=== PATIENT | male | born 1985 | race African-American/Black ===

== ENCOUNTER 2018-12-24 00:59 | Inpatient (IN) ==
[2018-12-24] MEDS ORDERED: Fentanyl 100 MCG/2 ML VIAL ONE ×3 (01:02→05:10)
[2018-12-24] MEDS ORDERED: Ondansetron PF 4 MG/2 ML Vial ONE ×2 (01:04→16:47)
[2018-12-24] MEDS ORDERED: Adacel (T-DAP) 0.5 ML SYRINGE ONE (01:11)
[2018-12-24 01:12] LABS: #Basophils 0.1 thou/uL (0.0-0.2); #Eosinphils 0.2 thou/uL (0.0-0.7); #Neutrophils 3.9 thou/uL (1.40-6.50); %Basophils 1.3 % (0.0-1.0); %Eosinophils 2.2 % (0.0-10.0); %Lymphocytes 43.5 % (21.0-51.0); %Monocytes 10.3 % (0.0-10.0); %Neutrophils 42.7 % (42.0-75.0); Hemoglobin 13.8 g/dL (14.0-18.0); Mean Corpuscular HGB CONC 32.9 g/dL (32.0-36.0); Mean Corpuscular Hemoglobin 31.3 pg (27.0-31.0); Mean Corpuscular Volume 95.3 fL (78.0-98.0); Mean Platelet Volume 6.9 fL (7.4-10.4); Platelet Count 401 thou/uL (130-400); RBC Distribution Width 11.2 % (11.5-14.5); Red Blood Cell (RBC) Count 4.41 mill/uL (4.70-6.10); White Blood Cell (WBC) Count 9.2 thou/uL (4.8-10.8)
[2018-12-24] MEDS ORDERED: metroNIDAZOLE 500 MG/100 ML BAG ONE (01:15)
[2018-12-24 01:20] LABS: INR-International Normal Ratio 1.2; PTT 24.2 SEC (22.9-36.1); Prothrombin Time 14.9 SEC (12.0-14.7)
[2018-12-24 01:30] LABS: ALT (SGPT) 10 U/L (8-55); AST (SGOT) 18 U/L (5-34); Albumin 4.2 g/dL (3.5-5.0); Alkaline Phosphatase 63 U/L (40-150); Anion Gap 20 mmol/L (10-20); BUN (Urea Nitrogen) 22 mg/dL (8.9-20.6); Bilirubin, Total 0.4 mg/dL (0.2-1.2); Calc. Creatinine Clearance 0 mL/min (70-130); Calcium 9.2 mg/dL (7.8-10.44); Carbon Dioxide 13 mmol/L (22-29); Chloride 105 mmol/L (98-107); Estimated GFR-MDRD 49; Globulin 3.6 g/dL (2.4-3.5); Glucose 149 mg/dL (70-105); Protein, Total 7.8 g/dL (6.0-8.3); Sodium 135 mmol/L (136-145)
[2018-12-24] MEDS ORDERED: Heparin 10,000 UNITS/1 ML VIAL ONE ×2 (01:50→01:58)
[2018-12-24] MEDS ORDERED: HYDROmorphone 2 MG/ML VIAL ONE (02:39)
[2018-12-24] MEDS ORDERED: Phenylephrine HCL 10 MG/ML VIAL ONE (03:48)
[2018-12-24] MEDS ORDERED: Propofol 1,000 MG/100 ML VIAL IV ONE ×2 (03:48→10:55)
[2018-12-24] MEDS ORDERED: Ondansetron PF 4 MG/2 ML Vial IVP PRN ×2 (05:02→09:58)
[2018-12-24] MEDS ORDERED: Ventilator Sedation Protocol 1 EACH FS SCH (05:02)
[2018-12-24] MEDS ORDERED: Promethazine HCl 25 MG/ML VIAL IM PRN ×2 (05:02)
[2018-12-24] MEDS ORDERED: Ondansetron ODT 4 MG TAB PO PRN (05:02)
[2018-12-24] MEDS ORDERED: hydrALAZINE 20 MG/ML VIAL SLOW IVP PRN (05:02)
[2018-12-24] MEDS ORDERED: Dextrose 5% in Water 1,000 ML IV PRN (05:02)
[2018-12-24] MEDS ORDERED: Dextrose 50% Abboject 50 ML SYRINGE SLOW IVP PRN (05:02)
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
[2018-12-24] MEDS ORDERED: Propofol BOLUS 1,000 MG/100 ML VIAL IV PRN (05:10)
[2018-12-24] MEDS ORDERED: Lorazepam 2 MG/ML VIAL SLOW IVP PRN (05:10)
[2018-12-24] MEDS ORDERED: Fentanyl BOLUS 250 ML IVPB PRN (05:10)
[2018-12-24] MEDS ORDERED: fentaNYL Citrate/PF 2,000 MCG in Sodium Chloride 0.9% 60 ML IV SCH (05:10)
[2018-12-24] MEDS ORDERED: DISCONTINUE PREVIOUS NARCOTIC PAIN MEDICATIONS AND BENZODIAZEPINES FS SCH (05:10)
[2018-12-24] MEDS ORDERED: Morphine 2 MG/ML SYRINGE SLOW IVP PRN (05:10)
[2018-12-24] MEDS: Propofol 1,000 MG/100 ML VIAL IV PRN ×2 (05:26→08:16)
[2018-12-24] MEDS ORDERED: Sodium Bicarbonate 150 MEQ in Dextrose 5% in Water 1,000 ML IV SCH ×2 (05:30→06:12)
[2018-12-24] MEDS ORDERED: Piperacillin/Tazobactam 3.375 GM in Sodium Chloride 0.9% 100 ML IVPB SCH ×2 (06:00→12:00)
[2018-12-24] MEDS ORDERED: Potassium Chloride 40 MEQ in Premix Bag 1 BAG IVPB SCH (06:30)
[2018-12-24] MEDS: Potassium Chloride 20 MEQ in Premix Bag 1 BAG IVPB SCH ×2 (06:34→07:27)
[2018-12-24 06:55] LABS: Actual Bicarbonate (HCO3a) 19.6 mEq/L (22-28); Base Excess (BEa) -5.3 mEq/L (-2.0 to +3.0); CO2 Tension 36.3 mmHg (35.0-45.0); Calcium, Ionized 1.08 mmol/L (1.12-1.30); Carboxyhemoglobin (COHb) 0.9 gm% (0.0-3.0); Hemoglobin (Hb) 12.8 g/dL (14.0-18.0); O2 Tension (PaO2) 320.3 mmHg (80.0-100.0); Potassium - ABG Lab 4.06 mmol/L (3.70-5.30); pH, Arterial 7.35 (7.35-7.45)
[2018-12-24 06:57] LABS: ALV-art Gradient 347.325 (0-20); Puncture Site ALINE
[2018-12-24 07:34] VITALS: BMI 35.2
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
[2018-12-24] MEDS: Lactated Ringer's 1,000 ML IV SCH ×3 (08:23→18:10)
[2018-12-24] MEDS ORDERED: Fluconazole In NaCl,Iso-Osm 400 MG in Premix Bag 1 BAG IVPB SCH (09:00)
[2018-12-24 09:58] LABS: #Lymphocytes 1.2 thou/uL (1.20-3.40); #Neutrophils 14.4 thou/uL (1.40-6.50); %Basophils 0.1 % (0.0-1.0); %Eosinophils 0.2 % (0.0-10.0); %Lymphocytes 6.9 % (21.0-51.0); %Monocytes 6.1 % (0.0-10.0); %Neutrophils 86.7 % (42.0-75.0); Hemoglobin 12.4 g/dL (14.0-18.0); Mean Corpuscular HGB CONC 32.9 g/dL (32.0-36.0); Mean Corpuscular Hemoglobin 30.9 pg (27.0-31.0); Mean Corpuscular Volume 93.8 fL (78.0-98.0); Mean Platelet Volume 6.9 fL (7.4-10.4); Platelet Count 322 thou/uL (130-400); RBC Distribution Width 11.2 % (11.5-14.5); Red Blood Cell (RBC) Count 4.01 mill/uL (4.70-6.10); White Blood Cell (WBC) Count 16.7 thou/uL (4.8-10.8)
[2018-12-24] MEDS ORDERED: HYDROmorphone 10 mg/100 ml CADD IVPB PRN (09:58)
[2018-12-24] MEDS ORDERED: Naloxone HCl 0.4 mg/ml Vial IV PRN (09:58)
[2018-12-24] MEDS ORDERED: diphenhydrAMINE 25 MG CAP PO PRN (09:58)
[2018-12-24] MEDS ORDERED: diphenhydrAMINE 50 MG/ML VIAL IM PRN (09:58)
[2018-12-24] MEDS ORDERED: diphenhydrAMINE 50 MG/ML VIAL IVP PRN (09:58)
[2018-12-24] MEDS ORDERED: Communication Order-Pharmacy FS SCH (10:00)
[2018-12-24 10:20] LABS: Anion Gap 10 mmol/L (10-20); BUN (Urea Nitrogen) 15 mg/dL (8.9-20.6); Calc. Creatinine Clearance 142 mL/min (70-130); Calcium 8.2 mg/dL (7.8-10.44); Carbon Dioxide 22 mmol/L (22-29); Chloride 106 mmol/L (98-107); Estimated GFR-MDRD 80; Glucose 145 mg/dL (70-105); Lipase 39 U/L (8-78); Phosphorus 3.2 mg/dL (2.3-4.7); Potassium 4.2 mmol/L (3.5-5.1); Sodium 134 mmol/L (136-145)
[2018-12-24] MEDS: Fluconazole In NaCl,Iso-Osm 200 MG in Premix Bag 1 BAG IVPB SCH (10:25)
[2018-12-24 13:01] LABS: Medtox Reader # READER 1; Methamphetamine Detected (NotDetected); Opiate Screen Detected (NotDetected)
[2018-12-24 13:02] LABS: Amphetamine Not Detected (NotDetected); Barbiturates Screen Not Detected (NotDetected); Benzodiazepine Screen Not Detected (NotDetected); Cocaine Metabolite Screen Not Detected (NotDetected); Medtox Control Line Valid? VALID (VALID); Methadone Not Detected (NotDetected); Oxycodone Screen Not Detected (NotDetected); Phencyclidine (PCP) Not Detected (NotDetected); THC/Cannabinoid Screen Not Detected (NotDetected); Tricyclic Screen Not Detected (NotDetected)
[2018-12-24] MEDS: Meropenem 2 GM, Admixture Fee 1 EACH in Sodium Chloride 0.9% 100 ML IVPB SCH ×2 (13:35→22:34)
[2018-12-24] MEDS ORDERED: Meropenem 2 GM in Admixture Fee 1 EACH IVPB SCH (14:00)
[2018-12-24] MEDS ORDERED: Iopamidol 370 76% 100 ML VIAL ONE (16:19)
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
[2018-12-24] MEDS ORDERED: Rocuronium Bromide 10 MG/ML (10ML VIAL) ONE (16:47)
[2018-12-24] MEDS ORDERED: PHENYLEPHRINE-NS 100 MCG/ML 10 ML SYRINGE ONE (16:47)
[2018-12-24] MEDS ORDERED: ePHEDrine 50 MG/ML VIAL ONE (16:47)
[2018-12-24] MEDS ORDERED: Lidocaine 1% PF 5 ML VIAL ONE (16:47)
[2018-12-24] MEDS ORDERED: Succinylcholine Chloride 20 MG/ML 10 ml SYRINGE FS ONE (16:47)
[2018-12-24] MEDS ORDERED: PROPOFOL 200 MG/20 ML VIAL ONE (16:47)
[2018-12-24] MEDS ORDERED: Dexamethasone 20 MG/5 ML VIAL ONE (16:47)
[2018-12-24] MEDS ORDERED: Vecuronium 10 MG VIAL ONE (16:47)
[2018-12-24] MEDS: Ketorolac Tromethamine 30 MG/ML VIAL IVP SCH (22:15)
[2018-12-24] MEDS ORDERED: Acetaminophen 1,000 MG in Premix Bag 1 BAG IVPB SCH (22:15)
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
[2018-12-25] MEDS: Lactated Ringer's 1,000 ML IV SCH ×4 (02:12→21:58)
[2018-12-25] MEDS: Meropenem 2 GM, Admixture Fee 1 EACH in Sodium Chloride 0.9% 100 ML IVPB SCH ×3 (06:00→22:47)
[2018-12-25] MEDS: Ketorolac Tromethamine 30 MG/ML VIAL IVP SCH ×3 (06:00→22:47)
[2018-12-25 06:02] LABS: Band 16 % (5-11); Hemoglobin 12.6 g/dL (14.0-18.0); Lymphocytes 15 % (21-51); MDiff Complete? YES; Mean Corpuscular HGB CONC 33.1 g/dL (32.0-36.0); Mean Corpuscular Hemoglobin 31.8 pg (27.0-31.0); Mean Corpuscular Volume 96.1 fL (78.0-98.0); Mean Platelet Volume 7.9 fL (7.4-10.4); Monocytes 5 % (0-10); Neutrophil 64 % (42-75); Platelet Count 189 thou/uL (130-400); Platelet Morphology Comment Appears Adequate; RBC Distribution Width 11.3 % (11.5-14.5); Red Blood Cell (RBC) Count 3.98 mill/uL (4.70-6.10); White Blood Cell (WBC) Count 18.2 thou/uL (4.8-10.8)
[2018-12-25 06:17] LABS: Anion Gap 14 mmol/L (10-20); BUN (Urea Nitrogen) 14 mg/dL (8.9-20.6); Calc. Creatinine Clearance 140 mL/min (70-130); Calcium 8.1 mg/dL (7.8-10.44); Carbon Dioxide 21 mmol/L (22-29); Chloride 106 mmol/L (98-107); Estimated GFR-MDRD 79; Glucose 93 mg/dL (70-105); Magnesium 1.8 mg/dL (1.6-2.6); Phosphorus 3.4 mg/dL (2.3-4.7); Sodium 136 mmol/L (136-145)
[2018-12-25] MEDS ORDERED: Magnesium Sulfate 3 GM in Sodium Chloride 0.9% 250 ML 250 ML IVPB SCH (06:30)
[2018-12-25 07:42] LABS: Anion Gap 11 mmol/L (10-20); BUN (Urea Nitrogen) 13 mg/dL (8.9-20.6); Calc. Creatinine Clearance 143 mL/min (70-130); Carbon Dioxide 23 mmol/L (22-29); Chloride 104 mmol/L (98-107); Estimated GFR-MDRD 81; Glucose 94 mg/dL (70-105); Sodium 134 mmol/L (136-145)
[2018-12-25] MEDS ORDERED: Sodium Chloride 0.9% (PF) 10 ML VIAL FS PRN (08:07)
[2018-12-25] MEDS: Pantoprazole 40 MG VIAL IVP SCH (09:18)
[2018-12-25] MEDS: Fluconazole In NaCl,Iso-Osm 200 MG in Premix Bag 1 BAG IVPB SCH (11:20)
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
[2018-12-26 05:19] LABS: #Eosinphils 0.1 thou/uL (0.0-0.7); #Lymphocytes 1.7 thou/uL (1.20-3.40); #Neutrophils 9.9 thou/uL (1.40-6.50); %Basophils 0.1 % (0.0-1.0); %Eosinophils 1.1 % (0.0-10.0); %Lymphocytes 13.4 % (21.0-51.0); %Monocytes 7.8 % (0.0-10.0); %Neutrophils 77.8 % (42.0-75.0); Hemoglobin 10.1 g/dL (14.0-18.0); Mean Corpuscular HGB CONC 33.6 g/dL (32.0-36.0); Mean Corpuscular Hemoglobin 32.6 pg (27.0-31.0); Mean Corpuscular Volume 97.1 fL (78.0-98.0); Platelet Count 255 thou/uL (130-400); RBC Distribution Width 10.9 % (11.5-14.5); Red Blood Cell (RBC) Count 3.08 mill/uL (4.70-6.10); White Blood Cell (WBC) Count 12.7 thou/uL (4.8-10.8)
[2018-12-26 05:40] LABS: INR-International Normal Ratio 1.3; PTT 36.1 SEC (22.9-36.1)
[2018-12-26 05:43] LABS: Anion Gap 11 mmol/L (10-20); BUN (Urea Nitrogen) 12 mg/dL (8.9-20.6); Calc. Creatinine Clearance 151 mL/min (70-130); Calcium 8.3 mg/dL (7.8-10.44); Carbon Dioxide 24 mmol/L (22-29); Chloride 104 mmol/L (98-107); Estimated GFR-MDRD 86; Glucose 93 mg/dL (70-105); Magnesium 2.1 mg/dL (1.6-2.6); Potassium 3.8 mmol/L (3.5-5.1); Sodium 135 mmol/L (136-145)
[2018-12-26] MEDS: Acetaminophen 1,000 MG in Premix Bag 1 BAG IVPB PRN ×3 (05:44→18:12)
[2018-12-26] MEDS: Lactated Ringer's 1,000 ML IV SCH ×3 (05:44→18:14)
[2018-12-26 05:57] LABS: Phosphorus 1.7 mg/dL (2.3-4.7)
[2018-12-26] MEDS ORDERED: Potassium Phosphate 30 MMOL in Sodium Chloride 0.9% 250 ML 250 ML IVPB SCH (06:15)
[2018-12-26] MEDS: Meropenem 2 GM, Admixture Fee 1 EACH in Sodium Chloride 0.9% 100 ML IVPB SCH ×3 (06:35→22:03)
[2018-12-26] MEDS: Ketorolac Tromethamine 30 MG/ML VIAL IVP SCH (06:36)
[2018-12-26] MEDS ORDERED: Midazolam HCl 2 mg/2 ml Vial ONE (07:16)
[2018-12-26] MEDS ORDERED: Fentanyl 250 MCG/5 ML VIAL ONE (07:16)
[2018-12-26] MEDS ORDERED: Succinylcholine Chloride 20 MG/ML 10 ml SYRINGE FS ONE (08:00)
[2018-12-26] MEDS ORDERED: PROPOFOL 200 MG/20 ML VIAL ONE (08:00)
[2018-12-26] MEDS ORDERED: Rocuronium Bromide 10 MG/ML (10ML VIAL) ONE (08:00)
[2018-12-26] MEDS ORDERED: Lidocaine 1% PF 5 ML VIAL ONE (08:00)
[2018-12-26] MEDS ORDERED: Ondansetron PF 4 MG/2 ML Vial ONE (08:00)
[2018-12-26] MEDS ORDERED: Ondansetron HCl/PF 4 MG/2 ML Vial IVP PRN (10:20)
[2018-12-26] MEDS ORDERED: Promethazine HCl 25 MG/ML VIAL IM PRN (10:20)
[2018-12-26] MEDS ORDERED: Promethazine HCl 25 MG/ML VIAL SLOW IVP PRN (10:20)
[2018-12-26] MEDS ORDERED: Fentanyl 100 MCG/2 ML VIAL ONE (10:22)
[2018-12-26] MEDS ORDERED: Sodium Chloride 0.9% 20 ML ONE (10:33)
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
[2018-12-26] MEDS ORDERED: HYDROmorphone 2 MG/ML VIAL ONE (10:44)
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
[2018-12-26] MEDS: Fluconazole In NaCl,Iso-Osm 200 MG in Premix Bag 1 BAG IVPB SCH (12:50)
[2018-12-26] MEDS: Pantoprazole 40 MG VIAL IVP SCH ×2 (12:50→20:12)
[2018-12-26] MEDS: HYDROmorphone 10 mg/100 ml CADD IVPB PRN (15:09)
[2018-12-26] MEDS ORDERED: Sodium Chloride 0.9% (PF) 10 ML VIAL FS PRN (16:24)
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
[2018-12-27] MEDS: Lactated Ringer's 1,000 ML IV SCH ×4 (06:13→20:32)
[2018-12-27 06:19] LABS: Band 11 % (5-11); Hemoglobin 9.5 g/dL (14.0-18.0); Lymphocytes 9 % (21-51); MDiff Complete? YES; Mean Corpuscular HGB CONC 31.4 g/dL (32.0-36.0); Mean Corpuscular Hemoglobin 30.5 pg (27.0-31.0); Mean Corpuscular Volume 97.2 fL (78.0-98.0); Mean Platelet Volume 7.6 fL (7.4-10.4); Monocytes 4 % (0-10); Neutrophil 76 % (42-75); Platelet Count 290 thou/uL (130-400); Platelet Morphology Comment Appears Adequate; RBC Distribution Width 11.1 % (11.5-14.5); Red Blood Cell (RBC) Count 3.12 mill/uL (4.70-6.10)
[2018-12-27 06:32] LABS: Anion Gap 8 mmol/L (10-20); BUN (Urea Nitrogen) 9 mg/dL (8.9-20.6); Calc. Creatinine Clearance 158 mL/min (70-130); Calcium 8.5 mg/dL (7.8-10.44); Carbon Dioxide 27 mmol/L (22-29); Chloride 105 mmol/L (98-107); Estimated GFR-MDRD 90; Glucose 113 mg/dL (70-105); Phosphorus 1.3 mg/dL (2.3-4.7); Potassium 4.1 mmol/L (3.5-5.1); Sodium 136 mmol/L (136-145)
[2018-12-27] MEDS: Meropenem 2 GM, Admixture Fee 1 EACH in Sodium Chloride 0.9% 100 ML IVPB SCH ×2 (06:40→15:16)
[2018-12-27] MEDS ORDERED: Sodium Phosphate 30 MMOL in Sodium Chloride 0.9% 250 ML 250 ML IVPB SCH (08:15)
[2018-12-27] MEDS: Pantoprazole 40 MG VIAL IVP SCH ×2 (08:54→20:32)
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
[2018-12-27] MEDS: Fluconazole In NaCl,Iso-Osm 200 MG in Premix Bag 1 BAG IVPB SCH (12:30)
[2018-12-27] MEDS: Enoxaparin Sodium 30 MG/0.3 ML SYRINGE SC SCH (20:31)
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
[2018-12-28] MEDS: Meropenem 2 GM, Admixture Fee 1 EACH in Sodium Chloride 0.9% 100 ML IVPB SCH ×4 (00:08→18:47)
[2018-12-28] MEDS: Lactated Ringer's 1,000 ML IV SCH ×4 (03:49→17:29)
[2018-12-28 04:16] LABS: #Basophils 0.1 thou/uL (0.0-0.2); #Eosinphils 0.4 thou/uL (0.0-0.7); #Lymphocytes 2.4 thou/uL (1.20-3.40); #Monocytes 1.6 thou/uL (0.11-0.59); #Neutrophils 10.3 thou/uL (1.40-6.50); %Basophils 0.5 % (0.0-1.0); %Eosinophils 2.9 % (0.0-10.0); %Lymphocytes 16.2 % (21.0-51.0); %Monocytes 10.5 % (0.0-10.0); %Neutrophils 69.9 % (42.0-75.0); Mean Corpuscular HGB CONC 33.4 g/dL (32.0-36.0); Mean Corpuscular Hemoglobin 32.1 pg (27.0-31.0); Mean Platelet Volume 6.9 fL (7.4-10.4); Platelet Count 326 thou/uL (130-400); RBC Distribution Width 11.1 % (11.5-14.5); White Blood Cell (WBC) Count 14.7 thou/uL (4.8-10.8)
[2018-12-28 04:37] LABS: Anion Gap 13 mmol/L (10-20); BUN (Urea Nitrogen) 9 mg/dL (8.9-20.6); Calc. Creatinine Clearance 194 mL/min (70-130); Calcium 8.8 mg/dL (7.8-10.44); Carbon Dioxide 24 mmol/L (22-29); Chloride 104 mmol/L (98-107); Estimated GFR-MDRD Greater than 90; Glucose 100 mg/dL (70-105); Magnesium 1.9 mg/dL (1.6-2.6); Potassium 3.9 mmol/L (3.5-5.1); Sodium 137 mmol/L (136-145)
[2018-12-28 05:01] LABS: Phosphorus 1.5 mg/dL (2.3-4.7)
[2018-12-28] MEDS: HYDROmorphone 10 mg/100 ml CADD IVPB PRN (05:10)
[2018-12-28] MEDS ORDERED: Magnesium 2 GM/50 ML 2 GM in Premix Bag 1 BAG IVPB SCH (05:15)
[2018-12-28] MEDS: Enoxaparin Sodium 30 MG/0.3 ML SYRINGE SC SCH (08:38)
[2018-12-28] MEDS: Pantoprazole 40 MG VIAL IVP SCH ×2 (08:38→20:35)
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
[2018-12-28] MEDS: Fluconazole In NaCl,Iso-Osm 200 MG in Premix Bag 1 BAG IVPB SCH (11:30)
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
[2018-12-29] MEDS: Meropenem 2 GM, Admixture Fee 1 EACH in Sodium Chloride 0.9% 100 ML IVPB SCH ×2 (02:47→13:02)
[2018-12-29] MEDS: Lactated Ringer's 1,000 ML IV SCH (02:48)
[2018-12-29 05:48] LABS: #Eosinphils 0.7 thou/uL (0.0-0.7); #Lymphocytes 2.3 thou/uL (1.20-3.40); #Monocytes 1.2 thou/uL (0.11-0.59); #Neutrophils 6.9 thou/uL (1.40-6.50); %Basophils 0.1 % (0.0-1.0); %Eosinophils 6.7 % (0.0-10.0); %Lymphocytes 20.6 % (21.0-51.0); %Monocytes 10.7 % (0.0-10.0); %Neutrophils 61.9 % (42.0-75.0); Hemoglobin 9.4 g/dL (14.0-18.0); Mean Corpuscular HGB CONC 33.8 g/dL (32.0-36.0); Mean Corpuscular Hemoglobin 32.1 pg (27.0-31.0); Mean Corpuscular Volume 95.1 fL (78.0-98.0); Platelet Count 383 thou/uL (130-400); RBC Distribution Width 11.3 % (11.5-14.5); Red Blood Cell (RBC) Count 2.91 mill/uL (4.70-6.10); White Blood Cell (WBC) Count 11.2 thou/uL (4.8-10.8)
[2018-12-29] MEDS ORDERED: Acetaminophen 1,000 MG in Premix Bag 1 BAG IVPB SCH (06:30)
[2018-12-29 06:45] LABS: Anion Gap 11 mmol/L (10-20); BUN (Urea Nitrogen) 9 mg/dL (8.9-20.6); Calc. Creatinine Clearance 196 mL/min (70-130); Calcium 8.5 mg/dL (7.8-10.44); Carbon Dioxide 26 mmol/L (22-29); Chloride 102 mmol/L (98-107); Estimated GFR-MDRD Greater than 90; Glucose 90 mg/dL (70-105); Magnesium 1.9 mg/dL (1.6-2.6); Phosphorus 2.1 mg/dL (2.3-4.7); Potassium 3.8 mmol/L (3.5-5.1); Sodium 135 mmol/L (136-145)
[2018-12-29] MEDS: Pantoprazole 40 MG VIAL IVP SCH ×2 (08:35→21:42)
[2018-12-29] MEDS ORDERED: Potassium Phosphate 30 MMOL in Sodium Chloride 0.9% 250 ML 250 ML IVPB SCH (09:15)
[2018-12-29] MEDS: Fluconazole In NaCl,Iso-Osm 200 MG in Premix Bag 1 BAG IVPB SCH (09:43)
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
[2018-12-29] MEDS ORDERED: traMADol HCl 50 MG TAB PO PRN (11:23)
[2018-12-29] MEDS: traMADol HCl 50 MG TAB PO SCH ×3 (12:59→23:29)
--- NOTE | 2018-12-29 14:04 | ULT ---
BILATERAL LOWER EXTREMITY VENOUS DUPLEX EXAM: 12/29/18 HISTORY: Bilateral leg pain and swelling. Real time color Doppler evaluation of the right and left lower extremities were performed from groin to calf. This includes evaluation of the common femoral, superficial and profunda femoral, saphenous , popliteal, and posterior tibial veins. This shows patent deep venous systems bilaterally. There is normal compressibility and augmentation. There is no evidence of DVT. IMPRESSION: No evidence of DVT of either lower extremity. POS: OFF
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
[2018-12-29] MEDS: Acetaminophen 500 MG TAB PO SCH ×2 (18:12→23:30)
[2018-12-29] MEDS: Enoxaparin Sodium 40 MG/0.4 ML SYRINGE SC SCH (21:42)
[2018-12-30 04:42] LABS: Anion Gap 12 mmol/L (10-20); BUN (Urea Nitrogen) 10 mg/dL (8.9-20.6); Calc. Creatinine Clearance 198 mL/min (70-130); Calcium 8.5 mg/dL (7.8-10.44); Carbon Dioxide 25 mmol/L (22-29); Chloride 102 mmol/L (98-107); Estimated GFR-MDRD Greater than 90; Glucose 93 mg/dL (70-105); Magnesium 2.1 mg/dL (1.6-2.6); Potassium 3.8 mmol/L (3.5-5.1); Sodium 135 mmol/L (136-145)
[2018-12-30 05:45] LABS: Band 3 % (5-11); Eosinophils 7 % (0-10); Hemoglobin 9.6 g/dL (14.0-18.0); Lymphocytes 23 % (21-51); MDiff Complete? YES; Mean Corpuscular HGB CONC 33.3 g/dL (32.0-36.0); Mean Corpuscular Hemoglobin 31.4 pg (27.0-31.0); Mean Corpuscular Volume 94.2 fL (78.0-98.0); Mean Platelet Volume 6.9 fL (7.4-10.4); Monocytes 11 % (0-10); Neutrophil 56 % (42-75); Nucleated RBC 1 % (0); Platelet Count 454 thou/uL (130-400); Platelet Morphology Comment Appears Increased; Polychromasia SLIGHT = 2-3 cells (100X) (0-2/hpf); RBC Distribution Width 11.4 % (11.5-14.5); Red Blood Cell (RBC) Count 3.05 mill/uL (4.70-6.10); White Blood Cell (WBC) Count 12.5 thou/uL (4.8-10.8)
[2018-12-30] MEDS: Acetaminophen 500 MG TAB PO SCH ×4 (06:01→23:24)
[2018-12-30] MEDS: traMADol HCl 50 MG TAB PO SCH ×4 (06:01→23:23)
[2018-12-30] MEDS: Pantoprazole 40 MG VIAL IVP SCH ×2 (09:20→20:45)
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
[2018-12-30] MEDS: Enoxaparin Sodium 40 MG/0.4 ML SYRINGE SC SCH (20:45)
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
[2018-12-31] MEDS: traMADol HCl 50 MG TAB PO SCH ×4 (05:22→23:28)
[2018-12-31] MEDS: Acetaminophen 500 MG TAB PO SCH ×4 (05:22→23:29)
[2018-12-31 05:24] LABS: Band 1 % (5-11); Eosinophils 7 % (0-10); Hemoglobin 9.7 g/dL (14.0-18.0); Lymphocytes 18 % (21-51); MDiff Complete? YES; Mean Corpuscular Hemoglobin 31.2 pg (27.0-31.0); Mean Corpuscular Volume 94.4 fL (78.0-98.0); Mean Platelet Volume 6.6 fL (7.4-10.4); Monocytes 9 % (0-10); Neutrophil 65 % (42-75); Platelet Count 605 thou/uL (130-400); Platelet Morphology Comment Appears Increased; Polychromasia SLIGHT = 2-3 cells (100X) (0-2/hpf); RBC Distribution Width 11.6 % (11.5-14.5); White Blood Cell (WBC) Count 11.3 thou/uL (4.8-10.8)
[2018-12-31] MEDS: Pantoprazole 40 MG VIAL IVP SCH ×2 (08:26→19:43)
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
[2018-12-31] MEDS: Enoxaparin Sodium 40 MG/0.4 ML SYRINGE SC SCH (19:43)
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
[2019-01-01] MEDS: traMADol HCl 50 MG TAB PO SCH ×2 (06:00→12:19)
[2019-01-01] MEDS: Acetaminophen 500 MG TAB PO SCH ×2 (06:01→12:20)
[2019-01-01] MEDS: Pantoprazole 40 MG VIAL IVP SCH (09:31)
[2019-01-01] MEDS ORDERED: Lidocaine 1% (PF) 30 ML VIAL ONE (11:53)
[2019-01-01 12:24] VITALS: BP 106/70; TEMP 98.6
[2019-01-01] MEDS ORDERED: Lidocaine 1% w/Epinephrine 1:200K 30 ML VIAL FS SCH (13:00)
[2019-01-01] MEDS ORDERED: Lidocaine 1% w/Epinephrine 1:100K 30 ML VIAL FS SCH (13:00)
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
[2019-01-03 09:32] LABS: Actual Bicarbonate (HCO3a) 21.6 mEq/L (22-28); Analyzer IN Cardio OR; Base Excess (BEa) -3.7 mEq/L (-2.0 to +3.0); Carboxyhemoglobin (COHb) 0.5 gm% (0.0-3.0); Hemoglobin (Hb) 12.8 g/dL (14.0-18.0); O2 Tension (PaO2) 241.8 mmHg (80.0-100.0); Potassium - ABG Lab 3.67 mmol/L (3.70-5.30); pH, Arterial 7.35 (7.35-7.45)
[2019-01-03 09:33] LABS: Puncture Site ALINE
== END 2019-01-01 15:20 | disposition home or self-care (01) | DRG 957 ==
LOC: ERS 00:59 → CCU 01:27 → SDC/OP 01:32 → EEVIPCON 01:32 → CCU 04:47 → EEVIPCON 04:47 → SURG A 12-27 03:07
PROVIDERS: ADMIT Surgery; ATTEND Surgery
PROC: 0DQ60ZZ Repair Stomach, Open Approach (ICD-10-PCS; principal; 2018-12-24)
PROC: 0DCW0ZZ Extirpation of Matter from Peritoneum, Open Approach (ICD-10-PCS; 2018-12-24)
PROC: 0DQA0ZZ Repair Jejunum, Open Approach (ICD-10-PCS; 2018-12-24)
PROC: 0DQL0ZZ Repair Transverse Colon, Open Approach (ICD-10-PCS; 2018-12-24)
PROC: 5A1935Z Respiratory Ventilation, Less than 24 Consecutive Hours (ICD-10-PCS; 2018-12-24)
PROC: 0BH17EZ Insertion of Endotracheal Airway into Trachea, Via Natural or Artificial Opening (ICD-10-PCS; 2018-12-24)
PROC: 0DQ60ZZ Repair Stomach, Open Approach (ICD-10-PCS; 2018-12-26)
PROC: 0W9F00Z Drainage of Abdominal Wall with Drainage Device, Open Approach (ICD-10-PCS; 2018-12-26)
PROC: 0WCH0ZZ Extirpation of Matter from Retroperitoneum, Open Approach (ICD-10-PCS; 2019-01-01)
DX: S36.39XA Other injury of stomach, initial encounter (principal); K65.9 Peritonitis, unspecified; S37.032A Laceration of left kidney, unspecified degree, initial encounter; J96.00 Acute respiratory failure, unspecified whether with hypoxia or hypercapnia; S36.498A Other injury of other part of small intestine, initial encounter; S36.893A Laceration of other intra-abdominal organs, initial encounter; D62 Acute posthemorrhagic anemia; S36.438A Laceration of other part of small intestine, initial encounter; J98.11 Atelectasis; E83.39 Other disorders of phosphorus metabolism; E87.6 Hypokalemia; E83.42 Hypomagnesemia; R31.0 Gross hematuria; W32.0XXA Accidental handgun discharge, initial encounter; Y93.9 Activity, unspecified; Y92.9 Unspecified place or not applicable
CPT/HCPCS: 36415; 36416; 36430; 51702; 71045; 74018; 74177; 80048; 80053; 80306; 82805; 83690; 83735; 84100; 85007; 85025; 85027; 85610; 85730; 86850; 86900; 86901; 87040; 90471; 90715; 93970; 94002; 94640; 96374; 96375; C9113; J0131; J0690; J1100; J1170; J1450; J1644; J1650; J1885; J2001; J2185; J2250; J2370; J2405; J2704; J3010; J3475; J3480; J3490; J7050; J7070; J7620; Q9967; Q9968

== ENCOUNTER 2022-01-04 09:58 | Emergency (ER) | payer SELFPAY ==
[2022-01-04] MEDS ORDERED: Ketorolac Tromethamine 30 MG/ML VIAL ONE (11:29)
[2022-01-04] MEDS ORDERED: Cyclobenzaprine 10 MG TAB ONE (11:29)
== END 2022-01-04 11:41 | disposition home or self-care (01) ==
LOC: ERS 09:58
DX: M54.50 Low back pain, unspecified (principal); F17.210 Nicotine dependence, cigarettes, uncomplicated
CPT/HCPCS: 36416; 96372; 99283; J1885